=== PATIENT | male | born 1935 | race Caucasian/White ===

== ENCOUNTER 2019-08-09 14:40 | Inpatient (IN) | payer MEDICARE, OTHER ==
[~2019-08-09] VITALS: Ht 177.8 cm; Wt 97.3 kg
[2019-08-09 15:09] LABS: BASOPHILS ABSOLUTE AUTO 0.03 K/mm3 (0.00-0.23); BASOPHILS PERCENT AUTO 0 % (0-2); EOSINOPHILS ABSOLUTE AUTO 0.02 K/mm3 (0.00-0.68); EOSINOPHILS PERCENT AUTO 0 % (0-6); Hematocrit 39.6 % (37.0-53.0); Hemoglobin 12.8 g/dL (13.5-17.5); IMMATURE GRAN ABSOLUTE AUTO 0.07 K/mm3 (0.00-0.10); IMMATURE GRAN PERCENT AUTO 0 % (0-1); LYMPHOCYTES ABSOLUTE AUTO 2.05 K/mm3 (0.84-5.20); LYMPHOCYTES PERCENT AUTO 12 % (21-46); MONOCYTES ABSOLUTE AUTO 1.34 K/mm3 (0.16-1.47); MONOCYTES PERCENT AUTO 8 % (4-13); Mean Corpuscular HGB 31.4 pg (26.0-34.0); Mean Corpuscular HGB Conc 32.3 g/dL (31.5-36.5); Mean Corpuscular Volume 97 fL (80-100); Mean Platelet Volume 10.4 fL (9.1-12.4); NEUTROPHILS ABSOLUTE AUTO 13.61 K/mm3 (1.96-9.15); NEUTROPHILS PERCENT AUTO 80 % (41-73); Platelet Count 183 K/mm3 (150-400); RDW Coefficient Variation 13.6 % (11.7-14.2); RDW Standard Deviation 48.6 fL (35.1-46.3); Red Blood Cell Count 4.08 M/mm3 (4.30-5.90); White Blood Cell Count 17.12 K/mm3 (4.00-11.30)
[2019-08-09] MEDS ORDERED: GEMF600 PO (15:19)
[2019-08-09] MEDS ORDERED: LEVE500 PO (15:20)
[2019-08-09] MEDS ORDERED: Amlodipine Besy10 MG PO (15:20)
[2019-08-09] MEDS ORDERED: METO100ER PO (15:20)
[2019-08-09] MEDS ORDERED: TAMS.4ER PO (15:21)
[2019-08-09] MEDS ORDERED: Actos45 MG PO (15:21)
[2019-08-09] MEDS ORDERED: FINA5 PO (15:21)
[2019-08-09] MEDS ORDERED: Aspir 8181 MG PO (15:22)
[2019-08-09] MEDS ORDERED: GLIP5 PO (15:22)
[2019-08-09] MEDS ORDERED: Pravastatin Sod80 MG PO (15:22)
[2019-08-09 15:33] LABS: Albumin, Blood 3.9 g/dL (3.4-5.0); Albumin/Globulin Ratio 1.1 (0.8-1.8); Bilirubin, Total 0.3 mg/dL (0.1-1.0); Bun/Creatinine Ratio 24.1 (12.0-20.0); Calcium, Blood 9.9 mg/dL (8.5-10.1); Creatinine, Blood 1.45 mg/dL (0.60-1.20); Globulin, Blood 3.7 g/dL (2.2-4.0); Potassium, Blood 4.1 mmol/L (3.5-5.5); Total Protein, Blood 7.6 g/dL (6.4-8.2)
[2019-08-09] MEDS ORDERED: LATA.005SO BOTHEYES (16:46)
[2019-08-09] MEDS ORDERED: TRAZ50 PO (16:46)
[2019-08-09] MEDS ORDERED: Flonase 0.05% N16 GM (16:47)
[2019-08-09 17:42] LABS: Source, Urine Clean Catch
[2019-08-09 17:48] LABS: Bilirubin, Urine Neg (Neg); Blood, Urine 2+ (Neg); Glucose Qualitative, Urine Neg (Neg); Ketones, Urine Neg (Neg); Leukocyte Esterase, Urine Neg (Neg); Nitrite, Urine Neg (Neg); Protein, Urine 2+ (Neg); Specific Gravity, Urine 1.015 (1.003-1.022); Urobilinogen, Urine NORM (Normal)
[2019-08-09 17:55] LABS: Appearance, Urine Clear (Clear); Bacteria Few /hpf; Color, Urine Yellow (P-Yellow); Red Blood Cells, Urine 0-2 /hpf (0-2); Squamous Epithelial Cells Rare /hpf (Few); White Blood Cells, Urine 0-2 /hpf (0-5)
--- NOTE | 2019-08-09 22:28 | NUR ---
ARRIVAL TO UNIT PT ARRIVED TO UNIT VIA GURNEY AND SLIDE TRANSFERED TO BED AT APPROX 2000. PATIENT AA0X4 C/O 4/10 PAIN TO RLQ. PATIENT ON 2L 02 SATS IN THE 90'S. CURRENTLY LAYING IN FOWLERS AND RESTING. PATIENT IS NPO PER ORDERS AND HAS URINATED IN THE URINAL. PATIENT ORIENTED TO UNIT, CALL LIGHT IN REACH.
--- NOTE | 2019-08-10 03:30 | NUR ---
O2 PATIENT SATS IN HIGH 80'S WHILE SLEEPING ON 2L NC. SAT PT UP IN BED AND INCREASED 02 TO 3L VIA NC. PATIENT SATS 94 AT THIS TIME. PATIENT DENIES DIZZINESS OR LIGHT HEADEDNESS. AWAKENS AND ANSWERS QUESTIOSN APPROPRIATLY.
[2019-08-10 04:00] LABS: BASOPHILS ABSOLUTE AUTO 0.02 K/mm3 (0.00-0.23); BASOPHILS PERCENT AUTO 0 % (0-2); EOSINOPHILS PERCENT AUTO 0 % (0-6); Hematocrit 34.6 % (37.0-53.0); Hemoglobin 11.7 g/dL (13.5-17.5); IMMATURE GRAN ABSOLUTE AUTO 0.16 K/mm3 (0.00-0.10); IMMATURE GRAN PERCENT AUTO 1 % (0-1); LYMPHOCYTES ABSOLUTE AUTO 1.78 K/mm3 (0.84-5.20); LYMPHOCYTES PERCENT AUTO 9 % (21-46); MONOCYTES ABSOLUTE AUTO 1.75 K/mm3 (0.16-1.47); MONOCYTES PERCENT AUTO 9 % (4-13); Mean Corpuscular HGB 32.1 pg (26.0-34.0); Mean Corpuscular HGB Conc 33.8 g/dL (31.5-36.5); Mean Corpuscular Volume 95 fL (80-100); Mean Platelet Volume 10.7 fL (9.1-12.4); NEUTROPHILS ABSOLUTE AUTO 15.26 K/mm3 (1.96-9.15); NEUTROPHILS PERCENT AUTO 81 % (41-73); Platelet Count 142 K/mm3 (150-400); RDW Coefficient Variation 13.9 % (11.7-14.2); RDW Standard Deviation 48.6 fL (35.1-46.3); Red Blood Cell Count 3.64 M/mm3 (4.30-5.90); White Blood Cell Count 18.97 K/mm3 (4.00-11.30)
[2019-08-10 04:21] LABS: Bun/Creatinine Ratio 18.4 (12.0-20.0); Calcium, Blood 8.9 mg/dL (8.5-10.1); Creatinine, Blood 1.63 mg/dL (0.60-1.20); Potassium, Blood 4.4 mmol/L (3.5-5.5)
--- NOTE | 2019-08-10 04:30 | NUR ---
SHIFT SUMMARY PT IN FOR ACUTE APPENDICITIS. AA0X4 VS WERE STABLE. OXYGEN DIPPED TO HIGH 80'S ON 2L WHILE ASLEEP, RAISED HEAD OF BED UP AND INCREASED TO 3L AND SATS UP TO 94%. PATIENT DENIES FEELING LIGHT HEADED. MEDICATED FOR PAIN X1 WITH 0.5MG DILAUDID. PATIENT USING URINAL, HAS NOT STOOD UP. PATIENT ASLEEP IN BED FOR MOST OF SHIFT. PAIN LOCATED ON RIGHT SIDE. NPO SINCE ARRIVAL.
--- NOTE | 2019-08-10 16:48 | NUR ---
SHIFT SUMMARY PT HAS TOLERATED CLEAR LQS WELL. DENIES N/V. MODERATE ABD PAIN. WEANED TO ROOM AIR PT DOES NOT USE AT HOME. PASSING GAS; NO BM.
--- NOTE | 2019-08-10 20:37 | NUR ---
OXYGEN PATIENT ON RA. SATS WERE 88% ENCOURAGED DEEP BREATHING, COUGHING AND INCENTIVE SPIROMETRY. SATS REMAINED 88-89%. PLACED PT ON 1L 02 VIA NASAL CANULA. SATS UP TO 94%. DENIES LIGHT HEADED OR DIZZY. SITTING IN SEMI FOWLERS RESTING IN BED.
[2019-08-11 04:13] LABS: BASOPHILS ABSOLUTE AUTO 0.01 K/mm3 (0.00-0.23); BASOPHILS PERCENT AUTO 0 % (0-2); EOSINOPHILS ABSOLUTE AUTO 0.05 K/mm3 (0.00-0.68); EOSINOPHILS PERCENT AUTO 0 % (0-6); Hemoglobin 11.1 g/dL (13.5-17.5); IMMATURE GRAN ABSOLUTE AUTO 0.06 K/mm3 (0.00-0.10); IMMATURE GRAN PERCENT AUTO 1 % (0-1); LYMPHOCYTES ABSOLUTE AUTO 1.99 K/mm3 (0.84-5.20); LYMPHOCYTES PERCENT AUTO 16 % (21-46); MONOCYTES ABSOLUTE AUTO 1.04 K/mm3 (0.16-1.47); MONOCYTES PERCENT AUTO 8 % (4-13); Mean Corpuscular HGB 31.7 pg (26.0-34.0); Mean Corpuscular HGB Conc 32.6 g/dL (31.5-36.5); Mean Corpuscular Volume 97 fL (80-100); Mean Platelet Volume 10.3 fL (9.1-12.4); NEUTROPHILS ABSOLUTE AUTO 9.72 K/mm3 (1.96-9.15); NEUTROPHILS PERCENT AUTO 75 % (41-73); Platelet Count 130 K/mm3 (150-400); RDW Coefficient Variation 14.1 % (11.7-14.2); RDW Standard Deviation 50.6 fL (35.1-46.3); White Blood Cell Count 12.87 K/mm3 (4.00-11.30)
--- NOTE | 2019-08-11 05:20 | NUR ---
SHIFT SUMMARY PT AA0X4, VSS. PATIENT HAS FELT STEADY PAIN IN RLQ DURING SHIFT. PAIN MANAGED WELL WITH PO NARCOTICS. PATIENT ON 1L DURING SHIFT SATS AT 94%. PATIETN HAS BEEN RESTING IN BED DURING SHIFT. VOIDING WITH URINAL.
--- NOTE | 2019-08-11 19:46 | NUR ---
SHIFT SUMMARY PT DID VERY WELL TODAY. MEDICATED FOR PAIN x 1. DIET WAS ADVANCED THIS EVENING AFTER SURGEON ROUNDED; TOLERATING WELL. NO INCREASE IN PAIN.
[2019-08-12 04:35] LABS: BASOPHILS ABSOLUTE AUTO 0.02 K/mm3 (0.00-0.23); BASOPHILS PERCENT AUTO 0 % (0-2); EOSINOPHILS ABSOLUTE AUTO 0.17 K/mm3 (0.00-0.68); EOSINOPHILS PERCENT AUTO 2 % (0-6); Hematocrit 32.3 % (37.0-53.0); Hemoglobin 10.7 g/dL (13.5-17.5); IMMATURE GRAN ABSOLUTE AUTO 0.06 K/mm3 (0.00-0.10); IMMATURE GRAN PERCENT AUTO 1 % (0-1); LYMPHOCYTES ABSOLUTE AUTO 1.39 K/mm3 (0.84-5.20); LYMPHOCYTES PERCENT AUTO 14 % (21-46); MONOCYTES PERCENT AUTO 11 % (4-13); Mean Corpuscular HGB 31.8 pg (26.0-34.0); Mean Corpuscular HGB Conc 33.1 g/dL (31.5-36.5); Mean Corpuscular Volume 96 fL (80-100); Mean Platelet Volume 10.2 fL (9.1-12.4); NEUTROPHILS ABSOLUTE AUTO 7.19 K/mm3 (1.96-9.15); NEUTROPHILS PERCENT AUTO 72 % (41-73); Platelet Count 127 K/mm3 (150-400); RDW Coefficient Variation 13.5 % (11.7-14.2); RDW Standard Deviation 47.8 fL (35.1-46.3); Red Blood Cell Count 3.36 M/mm3 (4.30-5.90); White Blood Cell Count 9.93 K/mm3 (4.00-11.30)
--- NOTE | 2019-08-12 05:58 | NUR ---
SHIFT SUMMARY: RADHA IS RECEIVING IV FLUIDS AND ANTIBIOTICS FOR HIS APPENDICITIS. HE IS A&OX4. HE IS INDEPENDENT IN THE ROOM. HE REPORTS THAT THE 2.5 MG DOSE OF OXYCONTIN IS EFFECTIVE FOR THE PAIN IN HIS RLQ. IV TO R AC PATENT. HE IS ABLE TO MAKE HIS NEEDS KNOWN. HE USES HIS CALL LIGHT APPROPRIATELY. HE IS LYING IN BED WITH HIS CALL LIGHT IN REACH. VSS. HE IS TOLERATING PO INTAKE WELL. HE WAS ENCOURAGED TO D/B&C AND USE THE INCENTIVE SPIROMETER.
[2019-08-12] MEDS ORDERED: AMOCLA875 PO (10:12)
[2019-08-12] MEDS ORDERED: Augmentin 875-1 EACH PO (11:00)
== END 2019-08-12 11:15 | disposition home or self-care (01) | DRG 395 ==
LOC: ER 14:40 → SURS 18:10
PROVIDERS: Physician Assistant; Surgery; ADMIT Internal Medicine
DX: K35.80 Unspecified acute appendicitis (principal); N40.0 Benign prostatic hyperplasia without lower urinary tract symptoms; E78.00 Pure hypercholesterolemia, unspecified; G40.909 Epilepsy, unspecified, not intractable, without status epilepticus; Z87.891 Personal history of nicotine dependence; Z79.82 Long term (current) use of aspirin; Z79.84 Long term (current) use of oral hypoglycemic drugs; I35.0 Nonrheumatic aortic (valve) stenosis; N18.3 Chronic kidney disease, stage 3 (moderate); I12.9 Hypertensive chronic kidney disease with stage 1 through stage 4 chronic kidney disease, or unspecified chronic kidney disease
CPT/HCPCS: 36415; 71045; 74177; 80048; 80053; 81001; 82947; 83036; 83690; 83880; 85025; 90686; 93005; 93010; 96361; 96365-59; 96372-59; 96375; 96376; 99285-25; J1170; J1644; J2405; J2543; J7030; J7120; Q9967

== ENCOUNTER 2019-08-26 12:43 | Day surgery (SDC) | payer MEDICARE, OTHER ==
[~2019-08-26] VITALS: Ht 177.8 cm; Wt 90.5 kg
[~2019-08-26 12:43] MED LIST: AMOCLA875 PO; Actos45 MG PO; Amlodipine Besy10 MG PO; Aspir 8181 MG PO; Augmentin 875-1 EACH PO; FINA5 PO; Flonase 0.05% N16 GM; GEMF600 PO; GLIP5 PO; LATA.005SO BOTHEYES; LEVE500 PO; METO100 PO; METO100ER PO; OMEP20ER PO; Omega 3 1,0001 EACH PO; Pravachol80 MG PO; Pravastatin Sod80 MG PO; TAMS.4ER PO; TRAZ50 PO
== END 2019-08-26 15:32 | disposition home or self-care (01) ==
LOC: ORSCSDS 12:43
PROVIDERS: Surgery
PROC: 0DBM8ZX Excision of Descending Colon, Via Natural or Artificial Opening Endoscopic, Diagnostic (ICD-10-PCS; principal; 2019-08-26 14:30)
PROC: 0DBH8ZX Excision of Cecum, Via Natural or Artificial Opening Endoscopic, Diagnostic (ICD-10-PCS; principal; 2019-08-26 14:30)
DX: K52.9 Noninfective gastroenteritis and colitis, unspecified (principal); D12.0 Benign neoplasm of cecum; D12.4 Benign neoplasm of descending colon; I10 Essential (primary) hypertension; E78.5 Hyperlipidemia, unspecified; E11.9 Type 2 diabetes mellitus without complications; Z87.891 Personal history of nicotine dependence; Z79.82 Long term (current) use of aspirin; Z79.84 Long term (current) use of oral hypoglycemic drugs; Z79.899 Other long term (current) drug therapy
CPT/HCPCS: 82947; 88305; 88313; J2704; J7120

== ENCOUNTER 2020-12-05 06:37 | Day surgery (SDC) | payer MEDICARE, OTHER ==
[~2020-12-05] VITALS: Ht 177.8 cm; Wt 96.7 kg
[~2020-12-05 06:37] MED LIST changes: +Norco 5-325 Ta1 EACH PO
--- NOTE | 2020-12-05 09:00 | NUR ---
12/05/20 0900 Beverly Chanel SLING IS PLACED ON OPERATIVE ARM IN SDU.
== END 2020-12-05 09:34 | disposition home or self-care (01) ==
LOC: ORSCSDS 06:37
PROVIDERS: Orthopaedic Surgery
PROC: 01N40ZZ Release Ulnar Nerve, Open Approach (ICD-10-PCS; principal; 2020-12-05 08:00)
DX: G56.22 Lesion of ulnar nerve, left upper limb (principal); I10 Essential (primary) hypertension; Z87.891 Personal history of nicotine dependence; E11.40 Type 2 diabetes mellitus with diabetic neuropathy, unspecified; G40.109 Localization-related (focal) (partial) symptomatic epilepsy and epileptic syndromes with simple partial seizures, not intractable, without status epilepticus; E78.5 Hyperlipidemia, unspecified; Z79.899 Other long term (current) drug therapy; Z79.84 Long term (current) use of oral hypoglycemic drugs; Z79.82 Long term (current) use of aspirin
CPT/HCPCS: 82947; J0690; J1100; J2405; J2704; J2795; J3010; J7120

== ENCOUNTER → 2024-04-13 | Outpatient (CLI) | payer MEDICARE ==
[2024-04-13 12:27] LABS: BASOPHILS ABSOLUTE AUTO 0.02 K/mm3 (0.00-0.23); BASOPHILS PERCENT AUTO 0 % (0-2); EOSINOPHILS ABSOLUTE AUTO 0.08 K/mm3 (0.00-0.68); EOSINOPHILS PERCENT AUTO 1 % (0-6); Hemoglobin 13.1 g/dL (13.5-17.5); IMMATURE GRAN ABSOLUTE AUTO 0.04 K/mm3 (0.00-0.10); IMMATURE GRAN PERCENT AUTO 0 % (0-1); LYMPHOCYTES PERCENT AUTO 20 % (21-46); MONOCYTES ABSOLUTE AUTO 0.84 K/mm3 (0.16-1.47); MONOCYTES PERCENT AUTO 9 % (4-13); Mean Corpuscular HGB Conc 33.6 g/dL (31.5-36.5); Mean Corpuscular Volume 92 fL (80-100); Mean Platelet Volume 10.2 fL (9.1-12.4); NEUTROPHILS ABSOLUTE AUTO 6.24 K/mm3 (1.96-9.15); NEUTROPHILS PERCENT AUTO 69 % (41-73); Platelet Count 374 K/mm3 (150-400); RDW Coefficient Variation 13.1 % (11.7-14.2); RDW Standard Deviation 44.1 fL (35.1-46.3); Red Blood Cell Count 4.22 M/mm3 (4.30-5.90); White Blood Cell Count 9.02 K/mm3 (4.00-11.30)
[2024-04-13 12:39] LABS: Albumin, Blood 3.1 g/dL (3.4-5.0); Albumin/Globulin Ratio 0.7 (0.8-1.8); Bilirubin, Total 0.3 mg/dL (0.1-1.0); Bun/Creatinine Ratio 17.5 (12.0-20.0); Calcium, Blood 10.8 mg/dL (8.5-10.1); Creatinine, Blood 1.71 mg/dL (0.60-1.20); Globulin, Blood 4.7 g/dL (2.2-4.0); Potassium, Blood 4.6 mmol/L (3.5-5.5); Total Protein, Blood 7.8 g/dL (6.4-8.2)
== END | disposition home or self-care (01) ==
LOC: LAB SHORT 12:23 → LAB 12:23
PROVIDERS: Physician Assistant
DX: N39.0 Urinary tract infection, site not specified (principal)
CPT/HCPCS: 80053; 85025; 87086

== ENCOUNTER → 2024-04-20 | Outpatient (CLI) | payer MEDICARE | END | disposition home or self-care (01) | LOC: LAB 12:28 → LAB SHORT 12:28 | DX: R31.9 Hematuria, unspecified (principal) | CPT/HCPCS: 87086 ==

== ENCOUNTER → 2024-04-23 | Outpatient (CLI) | payer MEDICARE ==
[2024-04-23 10:55] LABS: BASOPHILS ABSOLUTE AUTO 0.03 K/mm3 (0.00-0.23); BASOPHILS PERCENT AUTO 0 % (0-2); EOSINOPHILS ABSOLUTE AUTO 0.17 K/mm3 (0.00-0.68); EOSINOPHILS PERCENT AUTO 2 % (0-6); Hematocrit 37.5 % (37.0-53.0); Hemoglobin 12.6 g/dL (13.5-17.5); IMMATURE GRAN ABSOLUTE AUTO 0.05 K/mm3 (0.00-0.10); IMMATURE GRAN PERCENT AUTO 1 % (0-1); LYMPHOCYTES ABSOLUTE AUTO 1.83 K/mm3 (0.84-5.20); LYMPHOCYTES PERCENT AUTO 24 % (21-46); MONOCYTES ABSOLUTE AUTO 0.83 K/mm3 (0.16-1.47); MONOCYTES PERCENT AUTO 11 % (4-13); Mean Corpuscular HGB 31.1 pg (26.0-34.0); Mean Corpuscular HGB Conc 33.6 g/dL (31.5-36.5); Mean Corpuscular Volume 93 fL (80-100); Mean Platelet Volume 9.7 fL (9.1-12.4); NEUTROPHILS ABSOLUTE AUTO 4.69 K/mm3 (1.96-9.15); NEUTROPHILS PERCENT AUTO 62 % (41-73); Platelet Count 228 K/mm3 (150-400); RDW Coefficient Variation 14.1 % (11.7-14.2); RDW Standard Deviation 47.6 fL (35.1-46.3); Red Blood Cell Count 4.05 M/mm3 (4.30-5.90)
[2024-04-23 11:05] LABS: Albumin, Blood 3.2 g/dL (3.4-5.0); Albumin/Globulin Ratio 0.8 (0.8-1.8); Bilirubin, Total 0.2 mg/dL (0.1-1.0); Bun/Creatinine Ratio 11.2 (12.0-20.0); Calcium, Blood 10.5 mg/dL (8.5-10.1); Creatinine, Blood 2.06 mg/dL (0.60-1.20); Globulin, Blood 4.2 g/dL (2.2-4.0); Total Protein, Blood 7.4 g/dL (6.4-8.2)
== END | disposition home or self-care (01) ==
LOC: LAB SHORT 10:50 → LAB 10:50
PROVIDERS: Family Medicine
DX: R10.9 Unspecified abdominal pain (principal)
CPT/HCPCS: 80053; 85025

== ENCOUNTER → 2024-04-25 | Outpatient (CLI) | payer MEDICARE ==
[2024-04-25 12:02] LABS: BASOPHILS ABSOLUTE AUTO 0.03 K/mm3 (0.00-0.23); BASOPHILS PERCENT AUTO 1 % (0-2); EOSINOPHILS ABSOLUTE AUTO 0.13 K/mm3 (0.00-0.68); EOSINOPHILS PERCENT AUTO 2 % (0-6); Hematocrit 35.8 % (37.0-53.0); Hemoglobin 11.9 g/dL (13.5-17.5); IMMATURE GRAN ABSOLUTE AUTO 0.04 K/mm3 (0.00-0.10); IMMATURE GRAN PERCENT AUTO 1 % (0-1); LYMPHOCYTES ABSOLUTE AUTO 1.66 K/mm3 (0.84-5.20); LYMPHOCYTES PERCENT AUTO 26 % (21-46); MONOCYTES ABSOLUTE AUTO 0.76 K/mm3 (0.16-1.47); MONOCYTES PERCENT AUTO 12 % (4-13); Mean Corpuscular HGB 31.1 pg (26.0-34.0); Mean Corpuscular HGB Conc 33.2 g/dL (31.5-36.5); Mean Corpuscular Volume 94 fL (80-100); Mean Platelet Volume 10.1 fL (9.1-12.4); NEUTROPHILS ABSOLUTE AUTO 3.84 K/mm3 (1.96-9.15); NEUTROPHILS PERCENT AUTO 59 % (41-73); Platelet Count 231 K/mm3 (150-400); RDW Coefficient Variation 14.3 % (11.7-14.2); RDW Standard Deviation 48.1 fL (35.1-46.3); Red Blood Cell Count 3.83 M/mm3 (4.30-5.90); White Blood Cell Count 6.46 K/mm3 (4.00-11.30)
[2024-04-25 12:11] LABS: Albumin, Blood 3.1 g/dL (3.4-5.0); Albumin/Globulin Ratio 0.8 (0.8-1.8); Bilirubin, Total 0.2 mg/dL (0.1-1.0); Bun/Creatinine Ratio 12.6 (12.0-20.0); Calcium, Blood 10.4 mg/dL (8.5-10.1); Creatinine, Blood 1.67 mg/dL (0.60-1.20); Potassium, Blood 4.8 mmol/L (3.5-5.5); Total Protein, Blood 7.1 g/dL (6.4-8.2)
== END | disposition home or self-care (01) ==
LOC: LAB 11:56 → LAB SHORT 11:56
PROVIDERS: Emergency Medicine
DX: N17.9 Acute kidney failure, unspecified (principal)
CPT/HCPCS: 80053; 85025

== ENCOUNTER → 2025-04-26 | Outpatient (CLI) | payer MEDICARE, OTHER ==
[~2025-04-26] MED LIST changes: +ATOR40TA PO; +CEFP200 PO; +METF500 PO
[2025-04-26 16:09] LABS: BASOPHILS ABSOLUTE AUTO 0.04 K/mm3 (0.00-0.23); BASOPHILS PERCENT AUTO 0 % (0-2); EOSINOPHILS ABSOLUTE AUTO 0.04 K/mm3 (0.00-0.68); EOSINOPHILS PERCENT AUTO 0 % (0-6); Hematocrit 34.6 % (37.0-53.0); Hemoglobin 11.7 g/dL (13.5-17.5); IMMATURE GRAN ABSOLUTE AUTO 0.22 K/mm3 (0.00-0.10); IMMATURE GRAN PERCENT AUTO 1 % (0-1); LYMPHOCYTES ABSOLUTE AUTO 2.51 K/mm3 (0.84-5.20); LYMPHOCYTES PERCENT AUTO 16 % (21-46); MONOCYTES ABSOLUTE AUTO 1.87 K/mm3 (0.16-1.47); MONOCYTES PERCENT AUTO 12 % (4-13); Mean Corpuscular HGB Conc 33.8 g/dL (31.5-36.5); Mean Corpuscular Volume 94 fL (80-100); NEUTROPHILS ABSOLUTE AUTO 10.92 K/mm3 (1.96-9.15); NEUTROPHILS PERCENT AUTO 70 % (41-73); NRBC ABSOLUTE 0.00 K/mm3 (0.00-0.02); NRBC Auto 0.0 /100 WBC (0.0-0.2); Platelet Count 307 K/mm3 (150-400); RDW Coefficient Variation 13.4 % (11.7-14.2); RDW Standard Deviation 45.8 fL (35.1-46.3)
[2025-04-26 16:20] LABS: Alanine Aminotransfer (ALT/SGP 22.0 U/L (12-78); Albumin, Blood 3.1 g/dL (3.4-5.0); Albumin/Globulin Ratio 0.7 (0.8-1.8); Anion Gap 21.0 mmol/L (3-11); Aspartate Aminotrans (AST/SGOT 17.0 U/L (12-37); Bilirubin, Total 0.2 mg/dL (0.1-1.0); Blood Urea Nitrogen 45.0 mg/dL (8-24); CO2, Blood 18.0 mmol/L (21-32); Calcium, Blood 10.9 mg/dL (8.5-10.1); Chloride, Blood 104.0 mmol/L (98-108); Creatinine, Blood 2.25 mg/dL (0.60-1.20); Globulin, Blood 4.7 g/dL (2.2-4.0); Glucose, Blood 257.0 mg/dL (70-99); Potassium, Blood 4.5 mmol/L (3.5-5.5); Sodium, Blood 138.0 mmol/L (136-145); Total Protein, Blood 7.8 g/dL (6.4-8.2)
== END | disposition home or self-care (01) ==
LOC: LAB 16:05 → LAB SHORT 16:05
PROVIDERS: Physician Assistant
DX: R10.84 Generalized abdominal pain (principal); R82.998 Other abnormal findings in urine
CPT/HCPCS: 80053; 85025; 87077; 87086; 87186

== ENCOUNTER 2025-04-27 11:06 | Inpatient (IN) | payer MEDICARE, OTHER ==
[~2025-04-27] VITALS: Ht 177.8 cm; Wt 79.1 kg
[~2025-04-27 11:06] MED LIST changes: -ATOR40TA PO; -CEFP200 PO; -METF500 PO
[2025-04-27 12:20] VITALS: BP 159/68
[2025-04-27] MEDS ORDERED: ATOR40TA PO (12:37)
[2025-04-27] MEDS ORDERED: METF500 PO (12:40)
[2025-04-27] MEDS ORDERED: NS 1,000 ML IV SCH (13:10)
[2025-04-27] MEDS ORDERED: Heparin Sodium,Porcine 5,000 UNIT/0.5 ML SDV SC SCH (14:00)
[2025-04-27 15:24] VITALS: BP 164/69
--- NOTE | 2025-04-27 15:38 | NUR ---
THIS RN CALLED TO NOTIFY OF PT'S BP. PT HYPERTENSIVE, BUT ASYMPTOMATIC. PROVIDER TO PUT IN HOME MED ORDERS.
[2025-04-27] MEDS ORDERED: HYDROcodone 5-APAP 325 TAB PO PRN (16:10)
[2025-04-27] MEDS ORDERED: Insulin Human Lispro 100 Units/ML 3ML Syringe SC SCH (16:30)
[2025-04-27] MEDS ORDERED: CefTRIAXone Sodium 1,000 MG in NS 100 ML IV SCH (16:35)
[2025-04-27 17:24] LABS: Source, Urine Clean Catch
--- NOTE | 2025-04-27 17:48 | NUR ---
SHIFT SUMMARY PT A&OX4, AMB W/ ASSIST, TOLERATING PO, VOIDING, AND PAIN ONLY W/ URINATION. NS INFUSING PER ORDER. PT HYPERTENSIVE, BUT ASYMPTOMATIC, SEE PREVIOUS NOTE. PT HAD ULTRASOUND COMPLETED AND UA SENT TO LAB. FIRST DOSE OF IV ABX INFUSED. CALL LIGHT WITHIN REACH AND PT ABLE TO MAKE NEEDS KNOWN.
[2025-04-27 19:17] LABS: Bilirubin, Urine Neg (Neg); Color, Urine Yellow (P-Yellow); Glucose Qualitative, Urine Neg (Neg); Ketones, Urine Neg (Neg); Leukocyte Esterase, Urine 3+ (Neg); Protein, Urine 3+ (Neg); Specific Gravity, Urine 1.015 (1.003-1.022); Urobilinogen, Urine NORM (Normal)
[2025-04-27 19:28] VITALS: BP 160/60
[2025-04-27 19:32] LABS: White Blood Cells, Urine TNTC /hpf (0-5)
[2025-04-28 01:59] VITALS: BP 145/65
--- NOTE | 2025-04-28 05:52 | NUR ---
SHIFT SUMMARY NOC PT A/O X 3-4. CONFUSED AND FORGETFUL OF LIMITATIONS AT TIMES. VSS HS CBG 181 CNI. PT HAVING C/O OF NOT BEING ABLE TO EMPTY BLADDER AND REPORTS THAT THIS HAS BEEN ONGOING FOR PAST FEW WEEKS. BLADDER SCAN PERFORMED AND 400 ML FOUND, PT URINATED AFTER, BUT ONLY 50 ML OUTPUT. REPEAT BLADDER SCAN @ 0200 SHOWED 445 ML, PT HAD OUTPUT OF 200 ML. BLADDER SCAN @ 0530 SHOWED 393 ML POST VOID 350 ML. PT HAS NS INFUSING @ 100 ML/HR. PT CURRENTLY RESTING WITH BED ALARM ON FOR SAFETY, BED IN LOWEST POSITION, AND CALL LIGHT WITHIN REACH.
[2025-04-28 06:11] LABS: BASOPHILS ABSOLUTE AUTO 0.04 K/mm3 (0.00-0.23); BASOPHILS PERCENT AUTO 0 % (0-2); EOSINOPHILS ABSOLUTE AUTO 0.12 K/mm3 (0.00-0.68); EOSINOPHILS PERCENT AUTO 1 % (0-6); Hematocrit 33.5 % (37.0-53.0); Hemoglobin 11.4 g/dL (13.5-17.5); IMMATURE GRAN ABSOLUTE AUTO 0.17 K/mm3 (0.00-0.10); IMMATURE GRAN PERCENT AUTO 2 % (0-1); LYMPHOCYTES ABSOLUTE AUTO 2.01 K/mm3 (0.84-5.20); LYMPHOCYTES PERCENT AUTO 21 % (21-46); MONOCYTES ABSOLUTE AUTO 0.92 K/mm3 (0.16-1.47); MONOCYTES PERCENT AUTO 10 % (4-13); Mean Corpuscular HGB Conc 34.0 g/dL (31.5-36.5); Mean Corpuscular Volume 95 fL (80-100); NEUTROPHILS ABSOLUTE AUTO 6.34 K/mm3 (1.96-9.15); NEUTROPHILS PERCENT AUTO 66 % (41-73); NRBC ABSOLUTE 0.00 K/mm3 (0.00-0.02); NRBC Auto 0.0 /100 WBC (0.0-0.2); Platelet Count 299 K/mm3 (150-400); RDW Coefficient Variation 13.2 % (11.7-14.2); RDW Standard Deviation 46.0 fL (35.1-46.3)
[2025-04-28 06:37] LABS: Anion Gap 9.0 mmol/L (3-11); Blood Urea Nitrogen 38.0 mg/dL (8-24); CO2, Blood 20.0 mmol/L (21-32); Calcium, Blood 9.9 mg/dL (8.5-10.1); Chloride, Blood 112.0 mmol/L (98-108); Creatinine, Blood 1.7 mg/dL (0.60-1.20); Glucose, Blood 200.0 mg/dL (70-99); Potassium, Blood 4.0 mmol/L (3.5-5.5); Sodium, Blood 137.0 mmol/L (136-145)
[2025-04-28 07:18] VITALS: BP 148/67
--- NOTE | 2025-04-28 10:49 | NUR ---
THIS RN CALLED TO NOTIFY OF PT RETAINING URINE AND POST VOID RESIDUAL OF 421MLS. ORDER RECEIVED TO PLACE JIANG CATH.
[2025-04-28 14:45] VITALS: BP 155/71
--- NOTE | 2025-04-28 18:16 | NUR ---
SHIFT SUMMARY PT A&OX2-3 W/ NEW ONSET CONFUSION AND IMPULSIVENESS. PT HAD ACUTE RETENTION W/ JIANG PLACEMENT, SEE PREVIOUS NOTE. NS CONT TO INFUSE AND ABX GIVEN PER ORDER. BED ALARM ON FOR SAFETY AND CALL LIGHT WITHIN REACH.
[2025-04-28 19:34] VITALS: BP 161/73
[2025-04-29 05:04] VITALS: BP 183/76
[2025-04-29 05:11] LABS: BASOPHILS ABSOLUTE AUTO 0.05 K/mm3 (0.00-0.23); BASOPHILS PERCENT AUTO 1 % (0-2); EOSINOPHILS ABSOLUTE AUTO 0.23 K/mm3 (0.00-0.68); EOSINOPHILS PERCENT AUTO 2 % (0-6); Hematocrit 32.6 % (37.0-53.0); Hemoglobin 10.9 g/dL (13.5-17.5); IMMATURE GRAN ABSOLUTE AUTO 0.21 K/mm3 (0.00-0.10); IMMATURE GRAN PERCENT AUTO 2 % (0-1); LYMPHOCYTES ABSOLUTE AUTO 2.12 K/mm3 (0.84-5.20); LYMPHOCYTES PERCENT AUTO 19 % (21-46); MONOCYTES ABSOLUTE AUTO 1.02 K/mm3 (0.16-1.47); MONOCYTES PERCENT AUTO 9 % (4-13); Mean Corpuscular HGB Conc 33.4 g/dL (31.5-36.5); Mean Corpuscular Volume 93 fL (80-100); NEUTROPHILS ABSOLUTE AUTO 7.47 K/mm3 (1.96-9.15); NEUTROPHILS PERCENT AUTO 67 % (41-73); NRBC ABSOLUTE 0.00 K/mm3 (0.00-0.02); NRBC Auto 0.0 /100 WBC (0.0-0.2); Platelet Count 296 K/mm3 (150-400); RDW Coefficient Variation 13.3 % (11.7-14.2); RDW Standard Deviation 45.3 fL (35.1-46.3)
[2025-04-29 05:27] LABS: Anion Gap 11.0 mmol/L (3-11); Blood Urea Nitrogen 27.0 mg/dL (8-24); CO2, Blood 18.0 mmol/L (21-32); Calcium, Blood 9.4 mg/dL (8.5-10.1); Chloride, Blood 117.0 mmol/L (98-108); Creatinine, Blood 1.38 mg/dL (0.60-1.20); Glucose, Blood 188.0 mg/dL (70-99); Potassium, Blood 4.1 mmol/L (3.5-5.5); Sodium, Blood 142.0 mmol/L (136-145)
--- NOTE | 2025-04-29 05:30 | NUR ---
SHIFT SUMMARY NOC PT A/O X 3. CONFUSED AND FORGETFUL AT TIMES.VSS. HS CBG 216 CNI.JIANG PLACED YESTERDAY FOR ACUTE RETENTION DRAINING YELLOW URINE TO GRAVITY. NS INFUSING @ 100 ML/HR. PT HAD C/O OF LOWER ABD/BLADDER PAIN AND MEDICATED PER EMAR. PT HAS BED ALARM ON FOR SAFETY. PT CURRENTLY RESTING WITH BED IN LOWEST POSITION, AND CALL LIGHT WITHIN REACH.
[2025-04-29 07:16] VITALS: BP 187/71
[2025-04-29 10:21] VITALS: BP 131/60
[2025-04-29] MEDS ORDERED: CEFP200 PO (11:39)
--- NOTE | 2025-04-29 13:25 | NUR ---
DISCHARGED HOME 1230, AND SON ACCOMPANIED, DISCAHRGE INSTRUCTIONS GIVEN TO PATIENT AND SON, ALL STATED UNDERTANDING OF MEDICATION, FOLLOW UP, JIANG CATHETER, AND INSTRUCTIONS. ALL DENIED FURTHER QUESTIONS, PLEASANT TO CARE
== END 2025-04-29 12:50 | disposition home health service (06) | DRG 683 ==
LOC: MEDS 11:06
PROVIDERS: ADMIT Internal Medicine
PROC: 3E03329 Introduction of Other Anti-infective into Peripheral Vein, Percutaneous Approach (ICD-10-PCS; 2025-04-27)
PROC: 0T9B70Z Drainage of Bladder with Drainage Device, Via Natural or Artificial Opening (ICD-10-PCS; principal; 2025-04-28)
DX: N17.9 Acute kidney failure, unspecified (principal); N39.0 Urinary tract infection, site not specified; N40.1 Benign prostatic hyperplasia with lower urinary tract symptoms; I12.9 Hypertensive chronic kidney disease with stage 1 through stage 4 chronic kidney disease, or unspecified chronic kidney disease; E11.22 Type 2 diabetes mellitus with diabetic chronic kidney disease; N18.9 Chronic kidney disease, unspecified; M10.9 Gout, unspecified; G40.909 Epilepsy, unspecified, not intractable, without status epilepticus; E78.5 Hyperlipidemia, unspecified; R33.8 Other retention of urine; K59.00 Constipation, unspecified; R10.84 Generalized abdominal pain; R82.998 Other abnormal findings in urine; Z79.82 Long term (current) use of aspirin; Z79.891 Long term (current) use of opiate analgesic; Z79.84 Long term (current) use of oral hypoglycemic drugs
CPT/HCPCS: 36415; 74022; 76770; 80048; 80053; 80061; 81001; 82010; 82570; 82947; 83036; 83605; 83970; 84300; 85025; 87077; 87086; 87186; 96372; 96374; 96376; A9270; G0378; J0696; J1644; J7030

== ENCOUNTER → 2025-04-27 | Outpatient (CLI) | payer MEDICARE, OTHER ==
[2025-04-27 09:16] LABS: BASOPHILS ABSOLUTE AUTO 0.02 K/mm3 (0.00-0.23); BASOPHILS PERCENT AUTO 0 % (0-2); EOSINOPHILS ABSOLUTE AUTO 0.10 K/mm3 (0.00-0.68); EOSINOPHILS PERCENT AUTO 1 % (0-6); Hematocrit 33.0 % (37.0-53.0); Hemoglobin 11.0 g/dL (13.5-17.5); IMMATURE GRAN ABSOLUTE AUTO 0.17 K/mm3 (0.00-0.10); IMMATURE GRAN PERCENT AUTO 2 % (0-1); LYMPHOCYTES ABSOLUTE AUTO 1.72 K/mm3 (0.84-5.20); LYMPHOCYTES PERCENT AUTO 15 % (21-46); MONOCYTES ABSOLUTE AUTO 1.28 K/mm3 (0.16-1.47); MONOCYTES PERCENT AUTO 11 % (4-13); Mean Corpuscular HGB Conc 33.3 g/dL (31.5-36.5); Mean Corpuscular Volume 95 fL (80-100); NEUTROPHILS ABSOLUTE AUTO 8.11 K/mm3 (1.96-9.15); NEUTROPHILS PERCENT AUTO 71 % (41-73); NRBC ABSOLUTE 0.00 K/mm3 (0.00-0.02); NRBC Auto 0.0 /100 WBC (0.0-0.2); Platelet Count 306 K/mm3 (150-400); RDW Coefficient Variation 13.5 % (11.7-14.2); RDW Standard Deviation 47.0 fL (35.1-46.3)
[2025-04-27 09:31] LABS: Alanine Aminotransfer (ALT/SGP 21.0 U/L (12-78); Albumin, Blood 2.9 g/dL (3.4-5.0); Albumin/Globulin Ratio 0.6 (0.8-1.8); Anion Gap 20.0 mmol/L (3-11); Aspartate Aminotrans (AST/SGOT 21.0 U/L (12-37); Bilirubin, Total 0.2 mg/dL (0.1-1.0); Blood Urea Nitrogen 52.0 mg/dL (8-24); CO2, Blood 17.0 mmol/L (21-32); Calcium, Blood 10.5 mg/dL (8.5-10.1); Chloride, Blood 104.0 mmol/L (98-108); Creatinine, Blood 2.39 mg/dL (0.60-1.20); Globulin, Blood 4.5 g/dL (2.2-4.0); Glucose, Blood 349.0 mg/dL (70-99); Potassium, Blood 4.5 mmol/L (3.5-5.5); Sodium, Blood 136.0 mmol/L (136-145); Total Protein, Blood 7.4 g/dL (6.4-8.2)
== END | disposition home or self-care (01) ==
LOC: LAB SHORT 09:06 → LAB 09:06
PROVIDERS: Physician Assistant
DX: R10.9 Unspecified abdominal pain (principal)
CPT/HCPCS: 80053; 83605; 85025